=== PATIENT | male | born 1970 | race Caucasian/White ===

== ENCOUNTER 2024-11-30 11:11 | Outpatient (CLI) | payer OTHER ==
[~2024-11-30 11:11] MED LIST: KETO10TA2 PO; LEVSIN/SL0.125 MG SL; TAMS0.4C PO
== END 2024-11-30 11:13 | disposition home or self-care (01) ==
LOC: LAB 11:11
PROVIDERS: ATTEND Urology
DX: R97.20 Elevated prostate specific antigen [PSA] (principal)

== ENCOUNTER 2024-12-14 07:04 | Outpatient (CLI) | payer OTHER | END 2024-12-14 07:08 | disposition home or self-care (01) | LOC: SONOGRAMA 07:04 | PROVIDERS: ATTEND Urology | DX: C61 Malignant neoplasm of prostate (principal); N42.31 Prostatic intraepithelial neoplasia; N40.1 Benign prostatic hyperplasia with lower urinary tract symptoms; R97.20 Elevated prostate specific antigen [PSA] ==